=== PATIENT | male | born 1960 | race Two or more races ===

== ENCOUNTER 2024-06-29 16:49 | Outpatient (CLI) | payer OTHER | END 2024-06-29 16:59 | disposition home or self-care (01) | LOC: RAD 16:49 | PROVIDERS: ATTEND Internal Medicine | DX: I10 Essential (primary) hypertension (principal); Z01.810 Encounter for preprocedural cardiovascular examination; E03.9 Hypothyroidism, unspecified; Z12.11 Encounter for screening for malignant neoplasm of colon; Z13.820 Encounter for screening for osteoporosis; N41.0 Acute prostatitis ==